=== PATIENT | male | born 1940 | race Caucasian/White ===

== ENCOUNTER → 2023-10-11 14:27 | Outpatient (REF) | payer OTHER, SELFPAY | LOC: RAD 14:27 | PROVIDERS: ATTENDING PHYSICIAN Nurse Practitioner Pediatrics | DX: U07.1 COVID-19 (principal) | CPT/HCPCS: 71046 ==

== ENCOUNTER → 2024-02-19 12:21 | Outpatient (REF) | payer OTHER, SELFPAY ==
[2024-02-19 13:22] LABS: ALT (SGPT) 22 U/L (0-50); AST (SGOT) 26 U/L (17-59); Albumin 4.2 g/dl (3.5-5.0); Alkaline Phosphatase 70 U/L (38-126); Blood Urea Nitrogen 29 mg/dl (9-20); Calcium 9.5 mg/dl (8.4-10.2); Carbon Dioxide 25 mmol/L (22-30); Chloride 104 mmol/L (98-107); Glucose 103 mg/dl (70-99); Potassium 3.9 mmol/L (3.5-5.1); Sodium 142 mmol/L (135-145); Total Bilirubin 0.4 mg/dl (0.2-1.3); Total Protein 6.7 g/dl (6.3-8.2); eGFR 54.17
== END ==
LOC: REG 12:21
PROVIDERS: ATTENDING PHYSICIAN Specialist; FAMILY PHYSICIAN Family Medicine
DX: Z01.818 Encounter for other preprocedural examination (principal); M25.511 Pain in right shoulder
CPT/HCPCS: 36415; 80053

== ENCOUNTER → 2024-02-21 08:20 | Outpatient (REF) | payer OTHER, SELFPAY | LOC: RAD 08:20 | PROVIDERS: ATTENDING PHYSICIAN Specialist; FAMILY PHYSICIAN Family Medicine | DX: M25.511 Pain in right shoulder (principal) | CPT/HCPCS: 73200 ==

== ENCOUNTER → 2024-03-05 15:46 | Outpatient (REF) | payer OTHER, SELFPAY | LOC: RAD 15:46 | PROVIDERS: ATTENDING PHYSICIAN Family Medicine | DX: R91.1 Solitary pulmonary nodule (principal) | CPT/HCPCS: 71260; Q9967 ==

== ENCOUNTER 2024-11-06 12:03 | Day surgery (SDC) | payer OTHER, SELFPAY ==
[2024-10-26 11:57] VITALS: BMI 22.8
[2024-11-06 12:27] VITALS: BP 157/73; BMI 22.7
[2024-11-06 17:05] VITALS: BP 160/78
--- NOTE | 2024-11-06 17:32 | ITS.CL.IMPLP ---
Supervisor Keymodule Assembly - Implant Loop
Implant Loop
Procedure Report:
IMPLANTED MONITOR REMOVAL
Date of Procedure: 11/06/2024
Referring Supervisor Rubber Covering: Dr. Kip Delatorre
Proocedure performed:
1. Removal of implanted loop recorder
Indication for procedure:
Description of procedure: After informed consent was obtained,'time out' was called and confirmed, the patient was prepped and draped in a sterile fashion. Lidocaine with epi was used for local anesthesia. An 1 cm incision above the medial edge
of the loop recorder and the device was removed. The incision was closed in the typical fashion with absorbable sutures. Steri-Strips were used to cover the incision.
Complications: None
CONCLUSIONS:
1. Removal of implanted loop recorder.
RECOMMENDATIONS:
1: Follow-up as scheduled
== END 2024-11-06 17:25 | disposition home or self-care (01) ==
LOC: CATH 12:03
PROVIDERS: ATTENDING PHYSICIAN Internal Medicine Cardiovascular Disease; FAMILY PHYSICIAN Family Medicine; REFERRING PHYSICIAN Internal Medicine Cardiovascular Disease
DX: Z09 Encounter for follow-up examination after completed treatment for conditions other than malignant neoplasm (principal); Z86.73 Personal history of transient ischemic attack (TIA), and cerebral infarction without residual deficits; I45.10 Unspecified right bundle-branch block; I12.9 Hypertensive chronic kidney disease with stage 1 through stage 4 chronic kidney disease, or unspecified chronic kidney disease; N18.30 Chronic kidney disease, stage 3 unspecified; E78.5 Hyperlipidemia, unspecified; G47.33 Obstructive sleep apnea (adult) (pediatric); M10.9 Gout, unspecified; Z85.46 Personal history of malignant neoplasm of prostate; Z79.82 Long term (current) use of aspirin
CPT/HCPCS: 33286; 93005